=== PATIENT | female | born 1985 | race Caucasian/White ===

== ENCOUNTER 2019-04-19 20:26 | Emergency (ER) | payer MEDICAID, OTHER ==
[2019-04-19] MEDS ORDERED: Sodium Chloride 0.9% 1,000 ML IV SCH ×2 (21:15→22:00)
[2019-04-19] MEDS ORDERED: cefTRIAXone 1 GM in Sodium Chloride 0.9% 50 ML IV ONE (21:20)
[2019-04-19] MEDS ORDERED: Ibuprofen 600 MG Tab PO ONE (21:20)
--- NOTE | 2019-04-19 21:20 | EDM.PDOC ---
ED HPI GENERAL MEDICAL PROBLEM - General Chief Complaint: Genitourinary Problem Stated Complaint: UTI Time Seen by Provider: 04/19/19 20:50 Source of Information: Reports: Patient History Limitations: Reports: No Limitations - History of Present Illness INITIAL COMMENTS - FREE TEXT/NARRATIVE: pt arrived with a temp of 103 feeling very ill. She started to have burning on urination on thur. She has not taken any motrin. She is having alot of back pain she did just have a baby 1 month ago. She has never had a UTI Onset: Other ( started thue. 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 The burning is slightly better at this time but she is chilling and is having alot of back pain. She is feeling ill all over. ) : Reports: Dysuria, Other ( back pain. ) Musculoskeletal: Reports: Muscle Pain Skin: Reports: No Symptoms ED EXAM, RENAL/ - Physical Exam Exam: See Below Text/Narrative:: pt arrived with chills and being ill all over. She had dysuria starting thur and she now has back pain. She has never had a UTI before. Exam Limited By: No Limitations General Appearance: Alert, Anxious, Moderate Distress Ears: Normal TMs Nose: Normal Inspection Throat/Mouth: Normal Inspection Head: Atraumatic Neck: Normal Inspection Respiratory/Chest: No Respiratory Distress Cardiovascular: Regular Rate, Rhythm, Tachycardia GI/Abdominal: Other ( diffuse tenderness and some cva tenderness. ) (Female) Exam: Deferred, Other (pt did deliver a baby 1 month ago. ) Rectal (Female) Exam: Deferred Back Exam: CVA Tenderness (R), CVA Tenderness (L) Extremities: Normal Inspection Neurological: Alert, Oriented, Normal Cognition Psychiatric: Anxious Course - Vital Signs Last Recorded V/S: Last Vital Signs Temp 39.3 C H 04/19/19 22:27 Pulse 117 H 04/19/19 21:06 Resp 16 04/19/19 21:06 BP 159/101 H 04/19/19 21:06 Pulse Ox 100 04/19/19 21:06 - Orders/Labs/Meds Orders: Active Orders 24 hr Category Date Time Status CULTURE URINE [RM] Stat Lab 04/19/19 21:14 Received Sodium Chloride 0.9% [Normal Saline] 1,000 ml Med 04/19/19 21:15 Active IV ASDIRECTED Sodium Chloride 0.9% [Normal Saline] 1,000 ml Med 04/19/19 22:00 Active IV ASDIRECTED Medication Orders Sodium Chloride (Normal Saline) 1,000 mls @ 999 mls/hr IV ASDIRECTED HERNANDO Last Admin: 04/19/19 21:25 Dose: 999 mls/hr Sodium Chloride (Normal Saline) 1,000 mls @ 999 mls/hr IV ASDIRECTED HERNANDO Last Admin: 04/19/19 22:26 Dose: 999 mls/hr Labs: Laboratory Tests 04/19/19 04/19/19 04/19/19 Range/Units 20:46 21:15 21:15 WBC 9.4 (4.5-11.0) K/uL RBC 4.87 (3.30-5.50) M/uL Hgb 14.4 (12.0-15.0) g/dL Hct 43.4 (36.0-48.0) % MCV 89 (80-98) fL MCH 30 (27-31) pg MCHC 33 (32-36) % Plt Count 213 (150-400) K/uL Neut % (Auto) 78 H (36-66) % Lymph % (Auto) 14 L (24-44) % [place] % (Auto) 7 H (2-6) % Eos % (Auto) 1 L (2-4) % Baso % (Auto) 0 (0-1) % Sodium 140 (140-148) mmol/L Potassium 3.7 (3.6-5.2) mmol/L Chloride 104 (100-108) mmol/L Carbon Dioxide 24 (21-32) mmol/L Anion Gap 11.9 (5.0-14.0) mmol/L BUN 11 (7-18) mg/dL Creatinine 1.1 H (0.6-1.0) mg/dL Est Cr Clr Drug Dosing 71.40 mL/min Estimated GFR (MDRD) 58 L (>60) Glucose 91 (74-106) mg/dL Calcium 8.8 (8.5-10.1) mg/dL Total Bilirubin 0.3 (0.2-1.0) mg/dL AST 68 H (15-37) U/L ALT 137 H (12-78) U/L Alkaline Phosphatase 143 H (46-116) U/L Total Protein 7.8 (6.4-8.2) g/dL Albumin 3.6 (3.4-5.0) g/dL Globulin 4.2 H (2.3-3.5) g/dL Albumin/Globulin Ratio 0.9 L (1.2-2.2) Urine Color Yellow Urine Appearance Cloudy Urine pH 6.0 (4.5-8.0) Ur Specific [place] 1.015 (1.008-1.030) Urine Protein 30 H (NEGATIVE) mg/dL Urine Glucose (UA) Normal (NEGATIVE) mg/dL Urine Ketones Negative (NEGATIVE) mg/dL Urine Occult Blood Large (NEGATIVE) Urine Nitrite Positive H (NEGATIVE) Urine Bilirubin Negative (NEGATIVE) Urine Urobilinogen Normal (NORMAL) mg/dL Ur Leukocyte Esterase Large (NEGATIVE) Urine RBC 20-30 H (0-5) Urine WBC Semi-packed H (0-5) Ur Epithelial Cells Moderate Amorphous Sediment Not seen Urine Bacteria Many Urine Mucus Not seen Meds: Medications Generic Name Dose Route Start Last Admin Trade Name Freq PRN Reason Stop Dose Admin Sodium Chloride 1,000 mls @ 999 mls/hr 04/19/19 21:15 04/19/19 21:25 Normal Saline IV 999 mls/hr ASDIRECTED HERNANDO Administration Sodium Chloride 1,000 mls @ 999 mls/hr 04/19/19 22:00 04/19/19 22:26 Normal Saline IV 999 mls/hr ASDIRECTED HERNANDO Administration Discontinued Medications Generic Name Dose Route Start Last Admin Trade Name Feli CASAS Reason Stop Dose Admin Ceftriaxone Sodium 1 gm/ 50 mls @ 100 mls/hr 04/19/19 21:20 04/19/19 21:30 Sodium Chloride IV 04/19/19 21:49 100 mls/hr ONETIME ONE Administration Ibuprofen 600 mg 04/19/19 21:20 04/19/19 21:29 Motrin PO 04/19/19 21:21 600 mg ONETIME ONE Administration - Re-Assessments/Exams Free Text/Narrative Re-Assessment/Exam: 04/19/19 22:06 pt was given 2 liters of fluid. She was given a gram of rocephen. She was given motrin 600mg to bring her temp down. Her wbc was not elevated. 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 She has a very infected urine. She is clearly dry. 04/19/19 23:11 Departure - Departure Time of Disposition: 23:12 Disposition: Home, Self-Care 01 Condition: Fair Clinical Impression: Pyelonephritis, Dehydration - Discharge Information Referrals: PCP,None [Primary Care Provider] - Forms: ED Department Discharge Care Plan Goals: push fluids, tylenol and motrin to control fever--watch closely through the nite , keflex 500mg tid, rtc tomorrow for one more dose of iv rocephen, - My Orders Last 24 Hours: My Active Orders 04/19/19 21:14 CULTURE URINE [RM] Stat 04/19/19 21:15 Sodium Chloride 0.9% [Normal Saline] 1,000 ml IV ASDIRECTED 04/19/19 22:00 Sodium Chloride 0.9% [Normal Saline] 1,000 ml IV ASDIRECTED - Assessment/Plan Last 24 Hours: My Active Orders 04/19/19 21:14 CULTURE URINE [RM] Stat 04/19/19 21:15 Sodium Chloride 0.9% [Normal Saline] 1,000 ml IV ASDIRECTED 04/19/19 22:00 Sodium Chloride 0.9% [Normal Saline] 1,000 ml IV ASDIRECTED
[2019-04-19] MEDS ORDERED: Acetaminophen Soln 650 MG/20.3 ML UD Cup PO ONE (23:11)
[2019-04-19] MEDS ORDERED: Acetaminophen 325 MG Tab PO ONE (23:12)
== END 2019-04-19 23:41 | disposition home or self-care (01) ==
LOC: JP.ED 20:26
DX: O86.21 Infection of kidney following delivery (principal); O99.285 Endocrine, nutritional and metabolic diseases complicating the puerperium; E86.0 Dehydration
CPT/HCPCS: 36415; 80053; 81001; 85025; 87086; 87088; 87186; 96361; 96365; 99283; A9270; J0696; J7030; J7050